=== PATIENT | female | born 1995 | race Caucasian/White ===

== ENCOUNTER → 2016-09-15 | Outpatient (CLI) | payer BC ==
--- NOTE | 2016-09-15 09:22 | US ---
EXAMINATION TYPE: US abdomen complete DATE OF EXAM: 09/15/2016 COMPARISON: NONE CLINICAL HISTORY: R11.2 NAUSEA WITH VOMITING. EXAM MEASUREMENTS: Liver Length: 14.2 cm Gallbladder Wall: 0.2 cm CBD: 0.6 cm Spleen: 10.0 cm Right Kidney: 9.8 x 4.2 x 5.7 cm Left Kidney: 10.7 x 4.5 x 6.0 cm Pancreas: initially gassed out but was able to view when imaging liver, appears wnl Liver: intercostal imaging used, appears wnl Gallbladder: comet tail artifact seen on anterior GB wall, adenomyomatosis Evidence for sonographic Wisdom's sign: no CBD: wnl Spleen: 2.2cm cystic area seen Right Kidney: wnl Left Kidney: wnl Upper IVC: wnl Abd Aorta: wnl The liver is homogenous. The intrahepatic portion of the IVC and proximal abdominal aorta are within normal limits. There is no evidence of cholelithiasis. Mural nodularity with comet tail artifact o f the gallbladder wall may reflect adenomyomatosis. Common bile duct is unremarkable. The visualized portions of the pancreas are homogenous. The spleen is unremarkable. Kidneys are symmetric and gala e of hydronephrosis. No renal lesions are seen. IMPRESSION: 1. Suspect adenomyomatosis of the gallbladder
== END | disposition home or self-care (01) ==
LOC: RADUSWWP 07:25
PROVIDERS: ATTEND Family Medicine
DX: R11.2 Nausea with vomiting, unspecified (principal)
CPT/HCPCS: 76700

== ENCOUNTER 2016-10-16 06:17 | Day surgery (SDC) | payer BC ==
[2016-10-09 12:54] VITALS: BMI 33.4
[~2016-10-16 06:17] MED LIST: DEXAMETHASONE SOD PHOSPHATE 10 MG/ML 1 ML VIAL IV ONE; HEPARIN SODIUM,PORCINE 5,000 UNIT/ML 1 ML VIAL SQ ONE; LACTATED RINGERS 1,000 ML IV SCH; MIDAZOLAM 2 MG/2 ML VIAL IV PRN; ONDANSETRON 4 MG/2 ML VIAL IVP ONE; ceFAZolin 2 GM in SODIUM CHLORIDE 0.9% 100 ML IVPB ONE
[2016-10-16] MEDS ORDERED: LIDOCAINE 1% 20 ML VIAL (10MG/ML) FOR IV START INTRADERMA ONE (07:02)
--- NOTE | 2016-10-16 07:50 | P.GSHP ---
History of Present Illness H&P Date: 10/16/16 Chief Complaint: Right upper quadrant pain This is a 20-year-old female referred from Dr. Ramona Elaine. Patient rents today for laparoscopic cholecystectomy. She's had complaints of right upper quadrant pain. Her recent gallbladder ultrasound shows thickened gallbladder wall suggestive chronic cholecystitis. Past Medical History Additional Past Medical History / Comment(s): migraine headaches, occasional nausea History of Any Multi-Drug Resistant Organisms: None Reported Past Surgical History: Tonsillectomy Past Anesthesia/Blood Transfusion Reactions: No Reported Reaction Smoking Status: Never smoker - Past Family History Mother Family Medical History: No Reported History Medications and Allergies Home Medications Medication Instructions Recorded Confirmed Type Biotin 5 mg PO DAILY 10/09/16 10/16/16 History Butalb/Acetaminophen/Caffeine 1 - 2 each PO Q4H 10/09/16 10/16/16 History [Fioricet 50-325-40] Cyclobenzaprine [Flexeril] 10 mg PO HS PRN 10/09/16 10/16/16 History Tri-Estarylla 1 tab PO HS 10/09/16 10/16/16 History Allergies Allergy/AdvReac Type Severity Reaction Status Date / Time No Known Allergies Allergy Verified 10/16/16 06:42 Surgical - Exam Vital Signs Temp Pulse Resp BP Pulse Ox 98.3 F 89 18 129/74 99 10/16/16 06:41 10/16/16 06:41 10/16/16 06:41 10/16/16 06:41 10/16/16 06:41 - General well developed, no distress - Eyes PERRL - ENT normal pinna - Neck no masses - Respiratory normal expansion - Cardiovascular Rhythm: regular - Abdomen Abdomen: soft, non tender Assessment and Plan Plan: Right upper quadrant pain Chronic cholecystitis. We'll perform laparoscopic cholecystectomy
[2016-10-16] MEDS ORDERED: MIDAZOLAM 2 MG/2 ML VIAL ONE (07:53)
[2016-10-16] MEDS ORDERED: NEOSTIGMINE 1 MG/ML 10 ML VIAL ONE (07:53)
[2016-10-16] MEDS ORDERED: fentaNYL (PF) 50 MCG/ML 2 ML AMP ONE (07:53)
[2016-10-16] MEDS ORDERED: PROPOFOL 10 MG/ML 20 ML VIAL IV ONE (07:53)
[2016-10-16] MEDS ORDERED: ROCURONIUM BROMIDE 10 MG/ML 10 ML VIAL IV ONE (07:53)
[2016-10-16] MEDS ORDERED: SUCCINYLCHOLINE CHLORIDE 100 MG/5 ML SYR IV ONE (07:53)
[2016-10-16] MEDS ORDERED: GLYCOPYRROLATE 0.2 MG/ML 2 ML VIAL ONE (07:53)
[2016-10-16] MEDS ORDERED: BUPIVACAINE-EPI 0.5%-1:200,000 10 ML VIAL SQ ONE ×2 (08:21→08:26)
--- NOTE | 2016-10-16 08:46 | P.OP ---
Date of Procedure: 10/16/16 Preoperative Diagnosis: Cholecystitis Postoperative Diagnosis: Cholecystitis Procedure(s) Performed: Laparoscopic cholecystectomy Implants: Anesthesia: JOSH Surgeon: Tre Euceda Estimated Blood Loss (ml): 5 Pathology: other (Gallbladder) Condition: stable Disposition: PACU Indications for Procedure: Operative Findings: Description of Procedure: The patient was placed on the operating table. The patient received a general endotracheal tube anesthesia. The patients abdomen was prepped and draped in the usual sterile fashion. Through an infraumbilical stab incision, the fascia of the anterior abdominal wall was grasped with a pair of Kochers and then the Veress needle was placed in the peritoneal cavity. Position of the Veress needle was confirmed with positive drop test. The abdomen was then insufflated. After adequate insufflation, the 10 mm trocar was placed in the peritoneal cavity. Following this the laparoscope was placed in the peritoneal cavity. The patient was placed in the head-up, right side up position and then a 5 mm trocar was placed in the right lateral and right subcostal position under direct visualization. A 8 mm trocar was placed in the epigastric position. The gallbladder was grasped in the fundus and infundibulum. Traction on the gallbladder was placed in the lateral and the cephalad positions. The triangle of Calot was visualized.. The cystic duct was bluntly dissected until the union of the cystic duct and common bile duct was seen. The cystic duct was then divided and sealed with the Harmonic scissors. A PDS Endoloop was then placed throughout the cystic duct stump. The cystic artery divided and sealed with the Harmonic scissors. The gallbladder was then removed from the liver bed using Harmonic scissors. The gallbladder was then extracted through the epigastric port site. Operative field was checked for any bleeding spots and Harmonic scissors was used to coagulate the liver bed. The abdomen was irrigated. The trocars were removed. The skin was closed using interrupted 3-0 Vicryl suture. Dermabond dressing were applied. The patient tolerated the procedure well.
[2016-10-16] MEDS: HYDROmorphone 1 MG/ML 1 ML SYRINGE IVP PRN ×3 (09:06→09:34)
[2016-10-16] MEDS ORDERED: LACTATED RINGERS 1,000 ML IV ONE (09:09)
[2016-10-16 09:13] VITALS: TEMP 97.4
[2016-10-16] MEDS ORDERED: HYDROcodone/APAP 7.5-325MG 1 EACH TAB PO ONE (10:20)
[2016-10-16 10:50] VITALS: RESP 16
[2016-10-16 11:05] VITALS: BP 106/67; PULSE 82
== END 2016-10-16 11:16 | disposition home or self-care (01) ==
LOC: OR 06:17
PROVIDERS: ATTEND Surgery
DX: K81.1 Chronic cholecystitis (principal); G43.909 Migraine, unspecified, not intractable, without status migrainosus; E66.9 Obesity, unspecified; Z68.33 Body mass index [BMI] 33.0-33.9, adult; Z79.3 Long term (current) use of hormonal contraceptives; Z79.899 Other long term (current) drug therapy
CPT/HCPCS: 47562; 81025; 88304; J2250; J1644; J1100; J2710; J0690; J2405; J3010; J1170; J0330; J2704

== ENCOUNTER 2017-06-30 11:23 | Emergency (ER) | payer BC, OTHER ==
--- NOTE | 2017-06-30 12:12 | ED ---
General Adult HPI - General Chief complaint: Needlestick/Exposure Stated complaint: Needle stick Time Seen by Provider: 06/30/17 11:49 Source: patient, RN notes reviewed Mode of arrival: ambulatory Limitations: no limitations - History of Present Illness Initial comments: 21-year-old female presents from chief complaint of needlestick. Patient states she poked in her right hand on the finger. Patient states that they were trying to get multiple shots is to pediatric patient at once and states that she was poked. She states that the child has no history they are contacting family and obtaining blood. Patient is up-to-date on her tetanus. - Related Data Home Medications Medication Instructions Recorded Confirmed Biotin 5 mg PO DAILY 10/09/16 10/16/16 Butalb/Acetaminophen/Caffeine 1 - 2 each PO Q4H 10/09/16 10/16/16 [Fioricet 50-325-40] Cyclobenzaprine [Flexeril] 10 mg PO HS PRN 10/09/16 10/16/16 Tri-Estarylla 1 tab PO HS 10/09/16 10/16/16 Previous Rx's Medication Instructions Recorded Docusate [Colace] 100 mg PO BID #20 capsule 10/16/16 HYDROcodone/APAP 7.5-325MG [[place] 1 each PO Q4H PRN #60 tab 10/16/16 7.5] Allergies Allergy/AdvReac Type Severity Reaction Status Date / Time No Known Allergies Allergy Verified 06/30/17 11:30 Review of Systems ROS Statement: Those systems with pertinent positive or pertinent negative responses have been documented in the HPI. ROS Other: All systems not noted in ROS Statement are negative. Past Medical History Additional Past Medical History / Comment(s): migraine headaches History of Any Multi-Drug Resistant Organisms: None Reported Past Surgical History: Cholecystectomy, Tonsillectomy Past Anesthesia/Blood Transfusion Reactions: No Reported Reaction Past Psychological History: Anxiety Smoking Status: Never smoker Past Alcohol Use History: Occasional Past Drug Use History: None Reported - Past Family History Mother Family Medical History: No Reported History General Exam Limitations: no limitations General appearance: alert, in no apparent distress Head exam: Present: atraumatic, normocephalic, normal inspection Respiratory exam: Present: normal lung sounds bilaterally. Absent: respiratory distress, wheezes, rales, rhonchi, stridor Cardiovascular Exam: Present: regular rate, normal rhythm, normal heart sounds. Absent: systolic murmur, diastolic murmur, rubs, gallop, clicks Extremities exam: Present: other (Small puncture wound noted to the right hand finger) Course Vital Signs 06/30/17 11:25 Temperature 98.1 F Pulse Rate 89 Respiratory 16 Rate Blood Pressure 142/72 O2 Sat by Pulse 99 Oximetry Medical Decision Making - Medical Decision Making Patient will have lab work performed here for hepatitis, rapid HIV patient of the source will be obtained also patient will have prophylaxis based on testing Disposition Clinical Impression: Needlestick injury accident Disposition: HOME SELF-CARE Condition: Stable Instructions: Needle Stick Injuries (ED) Additional Instructions: Please return to the Emergency Department if symptoms worsen or any other concerns. Is patient prescribed a controlled substance at d/c from ED?: No Referrals: Ramona Munson MD [Primary Care Provider] - 1-2 days Time of Disposition: 12:12
[2017-06-30 13:22] VITALS: BP 138/80; PULSE 86; RESP 18; TEMP 98.2
[2017-06-30 19:59] LABS: Hepatitis B Surface AB- Quant 3.5 mIU/mL; Hepatitis C IgG Antibody Non-Reactive (Non-Reactive)
[2017-06-30 20:54] LABS: HIV AB P24 Non-Reactive (Non-Reactive); HIV P24 AG Non-Reactive (Non-Reactive)
== END 2017-06-30 13:20 | disposition home or self-care (01) ==
LOC: EC 11:23
DX: S61.232A Puncture wound without foreign body of right middle finger without damage to nail, initial encounter (principal); G43.909 Migraine, unspecified, not intractable, without status migrainosus; Z79.899 Other long term (current) drug therapy; W46.0XXA Contact with hypodermic needle, initial encounter; Y99.0 Civilian activity done for income or pay
CPT/HCPCS: 36415; 86706; 86803; 87390; 99283

== ENCOUNTER → 2017-08-05 | Outpatient (CLI) | payer BC | END | disposition home or self-care (01) | LOC: RADECHMAIN 11:45 | PROVIDERS: ATTEND Family Medicine | DX: R00.2 Palpitations (principal); R07.9 Chest pain, unspecified | CPT/HCPCS: 93225; 93226 ==

== ENCOUNTER 2017-10-22 08:29 | Day surgery (SDC) | payer BC ==
[2017-10-21 08:11] VITALS: BMI 33.3
[~2017-10-22 08:29] MED LIST changes: -DEXAMETHASONE SOD PHOSPHATE 10 MG/ML 1 ML VIAL IV ONE; -HEPARIN SODIUM,PORCINE 5,000 UNIT/ML 1 ML VIAL SQ ONE; -MIDAZOLAM 2 MG/2 ML VIAL IV PRN; -ONDANSETRON 4 MG/2 ML VIAL IVP ONE; -ceFAZolin 2 GM in SODIUM CHLORIDE 0.9% 100 ML IVPB ONE
[2017-10-22] MEDS ORDERED: LIDOCAINE 1% 20 ML VIAL (10MG/ML) FOR IV START INTRADERMA ONE (09:06)
[2017-10-22 09:12] VITALS: TEMP 98.5
[2017-10-22] MEDS ORDERED: LIDOCAINE 1% INJ 10MG/ML (20 ML MDV) ONE (10:33)
[2017-10-22] MEDS ORDERED: PROPOFOL 10 MG/ML 20 ML VIAL IV ONE (10:33)
--- NOTE | 2017-10-22 10:51 | P.GSHP ---
History of Present Illness H&P Date: 10/22/17 Chief Complaint: GERD This a 21-year-old female who has complaints of GERD. She resents today for EGD. Past Medical History Past Medical History: GERD/Reflux, Neurologic Disorder Additional Past Medical History / Comment(s): migraine headaches History of Any Multi-Drug Resistant Organisms: None Reported Past Surgical History: Cholecystectomy, Tonsillectomy Past Anesthesia/Blood Transfusion Reactions: No Reported Reaction Smoking Status: Never smoker - Past Family History Mother Family Medical History: No Reported History Medications and Allergies Home Medications Medication Instructions Recorded Confirmed Type Tri-Estarylla 1 tab PO HS 10/09/16 10/22/17 History Ranitidine HCl 300 mg PO HS 06/30/17 10/22/17 History Docusate [Colace] 100 mg PO DAILY 10/21/17 10/22/17 History Omeprazole 40 mg PO DAILY 10/21/17 10/22/17 History Allergies Allergy/AdvReac Type Severity Reaction Status Date / Time No Known Allergies Allergy Verified 10/22/17 09:50 Surgical - Exam Vital Signs Temp Pulse Resp BP Pulse Ox 98.5 F 98 16 116/79 98 10/22/17 09:11 10/22/17 09:11 10/22/17 09:11 10/22/17 09:11 10/22/17 09:11 - General well developed, no distress - Eyes PERRL - ENT normal pinna - Neck no masses - Respiratory normal expansion - Cardiovascular Rhythm: regular - Abdomen Abdomen: soft, non tender Assessment and Plan Assessment: GERD. We'll perform EGD.
--- NOTE | 2017-10-22 10:57 | P.OP ---
Date of Procedure: 10/22/17 Preoperative Diagnosis: GERD Postoperative Diagnosis: Antral gastritis Mild esophagitis Procedure(s) Performed: EGD Anesthesia: MAC Surgeon: Tre Euceda Pathology: other (Antrum) Condition: stable Disposition: PACU Description of Procedure: Patient's placed on the endoscopy table in the lateral position. She received IV sedation. The gastroscope placed oropharynx and passed into the esophagus into the stomach. Scope was then placed through the pylorus. The first and second portion of the duodenum appeared normal. The scope was then brought back the antrum this appeared minimally inflamed. A biopsies performed. The scope was then retroflexed and the remainder of the stomach appeared normal. There is no significant hiatal hernia. The GE junction was at 47 is. The distal esophagus appeared minimally inflamed a biopsies performed. The proximal esophagus. Normal. Scope was withdrawn for patient.
[2017-10-22 11:21] VITALS: BP 114/59; PULSE 80; RESP 18
== END 2017-10-22 11:43 | disposition home or self-care (01) ==
LOC: ORWHC2ENDO 08:29
PROVIDERS: ATTEND Surgery
DX: K29.50 Unspecified chronic gastritis without bleeding (principal); K21.9 Gastro-esophageal reflux disease without esophagitis; Z79.899 Other long term (current) drug therapy; Z90.49 Acquired absence of other specified parts of digestive tract
CPT/HCPCS: 81025; 88305; 43239; J2001; J2704

== ENCOUNTER → 2017-10-26 | Outpatient (CLI) | payer BC ==
--- NOTE | 2017-10-26 09:54 | FL ---
ESOPHOGRAM. HISTORY: Dysphagia Esophagram was performed per the air contrast technique. The patient swallowed barium and effervesce nt crystals without difficulty or delay. Esophageal peristalsis and motility appear to be within normal limits. There is no evidence for filling defect, mass or diverticulum. No hiatal hernia seen. Subsequently single contrast cervical esophagram was performed which fails demonstrate evidence for a spiration penetration or mass. IMPRESSION: Unremarkable study.
== END | disposition home or self-care (01) ==
LOC: RADFLWHC 08:33
PROVIDERS: ATTEND Surgery
DX: K21.9 Gastro-esophageal reflux disease without esophagitis (principal)
CPT/HCPCS: 74220

== ENCOUNTER → 2018-10-25 | Outpatient (CLI) | payer BC ==
--- NOTE | 2018-10-26 09:17 | XR ---
EXAMINATION TYPE: XR thoracic spine 2V DATE OF EXAM: 10/25/2018 CLINICAL HISTORY: Chronic back pain TECHNIQUE: Frontal, lateral, and swimmer's view of thoracic spine are obtained. COMPARISON: None. FINDINGS: Thoracic spine show satisfactory alignment without evidence of acute fracture or dislocatio n. Vertebral body heights and disc space heights are preserved. Visualized ribs are unremarkable. IMPRESSION: No acute fracture or malalignment is seen in the thoracic spine. If there is concern for disc herniation MRI could be performed.
--- NOTE | 2018-10-26 10:01 | XR ---
EXAMINATION TYPE: XR cervical spine comp DATE OF EXAM: 10/25/2018 TECHNIQUE: Frontal, lateral, oblique, swimmers, and open mouth view of the cervical spine are obtaine d. HISTORY: M54.2 M54.6 COMPARISON: None FINDINGS: There is straightening and slight reversal of the usual cervical lordosis. The cervical sp ine is visualized in its entirety from C1 thru the top of T1 level, it is satisfactory in alignment w ithout evidence of acute fracture or dislocation. The pre-vertebral soft tissue appears within andres l limits. The C1-C2 articulation is within normal limits on the open mouth view. The oblique images are within normal limits. IMPRESSION: 1. No acute fracture or malalignment is seen in the cervical spine. 2. Straightening and slight reversal of the usual cervical lordosis may be on the basis of muscular s prain/asthma or patient positioning.
== END | disposition home or self-care (01) ==
LOC: RADXRMAIN 16:17
PROVIDERS: ATTEND Family Medicine
DX: M54.6 Pain in thoracic spine (principal); M54.2 Cervicalgia
CPT/HCPCS: 72050; 72070

== ENCOUNTER → 2019-03-30 | Outpatient (CLI) | payer BC ==
--- NOTE | 2019-03-30 13:53 | US ---
EXAMINATION TYPE: US pelvic complete DATE OF EXAM: 03/30/2019 COMPARISON: NONE CLINICAL HISTORY: N93.9 abnormal bleeding. Pt states abnormal vaginal bleeding on depo shot x 2 year s TECHNIQUE: Transabdominal (TA). Transabdominal sonographic images of the pelvis were acquired. Date of LMP: 03/12/2019 EXAM MEASUREMENTS: Uterus: 8.1 x 3.2 x 4.2 cm Endometrial Stripe: 0.4 cm Right Ovary: 3.3 x 2.7 x 3.0 cm Left Ovary: 3.7 x 3.0 x 3.5 cm 1. Uterus: Anteverted Appeared wnl 2. Endometrium: wnl 3. Right Ovary: wnl 4. Left Ovary: wnl 5. Bilateral Adnexa: wnl 6. Posterior cul-de-sac: Scant amount of free fluid posterior to cervix IMPRESSION: Scant amount of free fluid in the posterior cul-de-sac is likely physiologic. No endometr ial thickening in this patient with dysfunctional uterine bleeding.
== END | disposition home or self-care (01) ==
LOC: RADUSWWP 13:22
PROVIDERS: ATTEND Family Medicine
DX: N93.9 Abnormal uterine and vaginal bleeding, unspecified (principal)
CPT/HCPCS: 76856